=== PATIENT | female | born 1985 | race Caucasian/White ===

== ENCOUNTER 2017-01-23 14:44 | Inpatient (IN) | payer BC ==
[~2017-01-23] VITALS: Ht 157.5 cm; Wt 66.0 kg
[~2017-01-23 14:44] MED LIST: OXYC30TA PO; OXYC30TA62 PO; XANA2TAB2 PO
[2017-01-23 14:51] VITALS: BP 102/71; PULSE 87; RESP 16; TEMP 98.6; O2SAT 95
--- NOTE | 2017-01-23 16:26 | PD ---
HPI Chief Complaint: Edema Time Seen by Provider: 16:12 Travel History International Travel<30 days: No Contact w/Intl Traveler<30days: No Traveled to known affect area: No History of Present Illness HPI 31-year-old female with history of breast augmentation, here for evaluation of left breast pain, swelling, and redness. Pain started about 2-3 days ago, has been worsening, is not severe, constant, radiates down her left arm and into her back, wrist with movement and palpation. She denies fevers or chills. She takes medication for chronic pain as well as anxiety. Last week she noted some chest heaviness. No known history of cardiac disease. She denies IVDU. PFSH Past Medical History Hx Anticoagulant Therapy: No Bipolar Disorder: Yes Anxiety: Yes Cancer: No Cardiovascular Problems: No Diabetes: No Diminished Hearing: No Glaucoma: No Hepatitis: No Hiatal Hernia: No Hypertension: No Medical other: No Musculoskeletal: Yes (CHRONIC RIGHT FOOT/ANKLE PAIN) Neurologic: Yes (CYST NEXT TO PINEAL GLAND) Respiratory: No Immunizations Current: Yes Migraines: Yes Thyroid Disease: No ?: Not Past Surgical History Abdominal Surgery: Yes (LAPAROSCOPY X8) Other Surgery: Yes (BREAST AUGMENTATION) Social History Alcohol Use: Yes (RARE) Tobacco Use: Yes (/ PPD) Substance Use: No Allergies-Medications (Allergen,Severity, Reaction): Coded Allergies: Morphine (Unverified Allergy, Severe, CHEST TIGHTNESS, SOB, HIVES, 01/23/17 ) Adhesives (Verified Allergy, Mild, REDNESS, 01/23/17) Flexeril (Verified Allergy, Mild, RASH, 01/23/17) Sulfa (Verified Allergy, Mild, RASH, 01/23/17) Voltaren (Verified Adverse Reaction, Mild, NAUSEA, GI UPSET, 01/23/17) Reported Meds & Prescriptions Reported Meds & Active Scripts Active Reported Oxycodone (Oxycodone HCl) 30 Mg Tab 30 Mg PO Q8H PRN Oxycontin (Oxycodone HCl) 30 Mg Tab 30 Mg PO Q8HR Xanax (Alprazolam) 2 Mg Tab 2 Mg PO Q8H PRN Review of Systems Except as stated in HPI: all other systems reviewed are Neg Physical Exam Narrative GENERAL: Well-developed, well-nourished, comfortable, no acute distress. SKIN: Warm and dry. Left anterior forearm with several healed horizontal/ linear scars that were self-inflicted. HEAD: Atraumatic. Normocephalic. EYES: Pupils equal and round. No scleral icterus. No injection or drainage. ENT: Mucous membranes pink and moist. CARDIOVASCULAR: Regular rate and rhythm. No murmur appreciated. RESPIRATORY: No accessory muscle use. Clear to auscultation. Breath sounds equal bilaterally. BREAST: Exam performed in the presence of female nurse. Left breast with moderate edema with compared to the right with erythema laterally, diffuse tenderness, no fluctuance or induration. No nodules. Bilateral nipples are normal, no discharge. MUSCULOSKELETAL: No obvious deformities. No clubbing. No cyanosis. No edema. NEUROLOGICAL: Awake and alert. No obvious cranial nerve deficits. Motor grossly within normal limits. Normal speech. PSYCHIATRIC: Appropriate mood and affect; insight and judgment normal. Data Data Last Documented VS Vital Signs Date Time Temp Pulse Resp B/P Pulse Ox O2 Delivery O2 Flow Rate FiO2 01/23/17 17:20 14 01/23/17 17:05 94 01/23/17 14:51 98.6 87 102/71 Orders Beta Hcg (Quant/Titer) (01/23/17 16:22) Complete Blood Count With Diff (01/23/17 16:22) Comprehensive Metabolic Panel (01/23/17 16:22) Prothrombin Time / Inr (Pt) (01/23/17 16:22) Act Partial Throm Time (Ptt) (01/23/17 16:22) Iv Access Insert/Monitor (01/23/17 16:22) Ecg Monitoring (01/23/17 16:22) Oximetry (01/23/17 16:22) Sodium Chloride 0.9% Flush (Ns Flush) (01/23/17 16:30) Electrocardiogram (01/23/17 16:22) Ckmb (Isoenzyme) Profile (01/23/17 16:22) Troponin I (01/23/17 16:22) Chest, Single Ap (01/23/17 16:22) Us Breast Unilateral (01/23/17 ) Hydromorphone Pf Inj (Dilaudid Pf Inj) (01/23/17 16:30) Clindamycin Inj (Cleocin Inj) (01/23/17 16:30) Blood Culture (01/23/17 16:32) Admit Order (Ed Use Only) (01/23/17 18:45) Labs Laboratory Tests Test 01/23/17 16:30 White Blood Count 7.3 TH/MM3 Red Blood Count 4.17 MIL/MM3 Hemoglobin 13.1 GM/DL Hematocrit 38.7 % Mean Corpuscular Volume 92.9 FL Mean Corpuscular Hemoglobin 31.4 PG Mean Corpuscular Hemoglobin 33.8 % Concent Red Cell Distribution Width 12.5 % Platelet Count 220 TH/MM3 Mean Platelet Volume 7.9 FL Neutrophils (%) (Auto) 48.9 % Lymphocytes (%) (Auto) 37.8 % Monocytes (%) (Auto) 8.1 % Eosinophils (%) (Auto) 4.5 % Basophils (%) (Auto) 0.7 % Neutrophils # (Auto) 3.5 TH/MM3 Lymphocytes # (Auto) 2.8 TH/MM3 Monocytes # (Auto) 0.6 TH/MM3 Eosinophils # (Auto) 0.3 TH/MM3 Basophils # (Auto) 0.1 TH/MM3 CBC Comment DIFF FINAL Differential Comment Prothrombin Time 10.0 SEC Prothromb Time International 0.9 RATIO Ratio Activated Partial 31.7 SEC Thromboplast Time Sodium Level 141 MEQ/L Potassium Level 3.9 MEQ/L Chloride Level 106 MEQ/L Carbon Dioxide Level 25.2 MEQ/L Anion Gap 10 MEQ/L Blood Urea Nitrogen 8 MG/DL Creatinine 0.47 MG/DL Estimat Glomerular Filtration 154 ML/MIN Rate Random Glucose 87 MG/DL Calcium Level 8.1 MG/DL Total Bilirubin 0.2 MG/DL Aspartate Amino Transf 16 U/L (AST/SGOT) Alanine Aminotransferase 64 U/L (ALT/SGPT) Alkaline Phosphatase 87 U/L Total Creatine Kinase 55 U/L Troponin I LESS THAN 0.02 NG/ML Total Protein 6.8 GM/DL Albumin 3.1 GM/DL Human Chorionic Gonadotropin, LESS THAN 1 Quant MIU/ML MDM Medical Decision Making Medical Screen Exam Complete: Yes Emergency Medical Condition: Yes Interpretation(s) EKG: Sinus, rate 80, leftward axis, normal intervals, no acute ischemic abnormality. Differential Diagnosis Left breast cellulitis, left breast abscess Narrative Course Initial vital signs show heart rate 87, blood pressure 102/71, pulse ox 95% on room air, oral temp of 98.6F. CBC shows WBCs 7.3, hemoglobin 13.1, hematocrit 38.7, platelets 220 CMP is unremarkable. Cardiac enzymes are negative. Beta hCG is negative. Chest x-ray: No acute disease. Left breast ultrasound: No focal abnormality is visualized. The patient has an cellulitis to her left breast. She was given a dose of Dilaudid and is still having pain. She was given a dose of clindamycin. Patient had her breast augmentation in 2003 in [facility]. Case discussed with on-call plastic surgeon Dr. Garcia who recommends the patient be admitted to the main hospital for IV antibiotics were he can see the patient in consultation. Case discussed with hospitalist Dr. Busch who will admit the patient to his service. The patient was made aware of all findings and plan for admission. 7:30PM: The patient was evaluated at the bedside by Dr Garcia. He recommends adding vancomycin. He would like a CT thorax. Diagnosis Primary Impression: Cellulitis of left breast Admitting Information Admitting Physician Requests: Admit Claude Marcelo MD Jan 23, 2017 16:26
[2017-01-23] MEDS ORDERED: HYDROmorphone HCL PF 1 MG/ML VIAL IV PUSH ONE (16:30)
[2017-01-23] MEDS ORDERED: SODIUM CHLORIDE 0.9% FLUSH 5 ML FLUSH IVF PRN (16:30)
[2017-01-23] MEDS ORDERED: CLINDAMYCIN INJ 600 MG in SODIUM CHLORIDE 0.9% INJ 100 ML IV ONE (16:30)
[2017-01-23 16:44] LABS: AUTOMATED NEUTROPHIL # 3.5 TH/MM3 (1.8-7.7); BASOPHIL # 0.1 TH/MM3 (0-0.2); BASOPHIL % 0.7 % (0.0-2.0); EOSINOPHIL # 0.3 TH/MM3 (0-0.4); EOSINOPHIL % 4.5 % (0.0-4.0); HEMATOCRIT 38.7 % (35.0-46.0); HEMO FLAGS DIFF FINAL; LYMPH % 37.8 % (9.0-44.0); LYMPHOCYTE # 2.8 TH/MM3 (1.0-4.8); MEAN CELL VOLUME 92.9 FL (80.0-100.0); MEAN CORPUSCULAR HEMOGLOBIN 31.4 PG (27.0-34.0); MEAN CORPUSCULAR HGB CONC 33.8 % (32.0-36.0); MONO % 8.1 % (0.0-8.0); NEUT % 48.9 % (16.0-70.0); PLATELET COUNT 220 TH/MM3 (150-450); RED BLOOD COUNT 4.17 MIL/MM3 (4.00-5.30); RED CELL DISTRIBUTION WIDTH 12.5 % (11.6-17.2); WHITE BLOOD COUNT 7.3 TH/MM3 (4.0-11.0)
[2017-01-23 16:57] LABS: CHLORIDE 106 MEQ/L (98-107); POTASSIUM 3.9 MEQ/L (3.5-5.1); SODIUM (NA) 141 MEQ/L (136-145)
[2017-01-23 17:03] LABS: ANION GAP 10 MEQ/L (5-15); BICARBONATE 25.2 MEQ/L (21.0-32.0)
[2017-01-23 17:04] LABS: BLOOD UREA NITROGEN 8 MG/DL (7-18)
[2017-01-23 17:05] VITALS: O2SAT 94
[2017-01-23 17:05] LABS: APTT (PATIENT) 31.7 SEC (24.3-30.1); INTERNATIONAL NORMALIZED RATIO 0.9 RATIO
[2017-01-23 17:06] LABS: ALT (GPT) 64 U/L (10-53)
[2017-01-23 17:07] LABS: AST (GOT) 16 U/L (15-37); GLOMERULAR FILTRATION RATE 154 ML/MIN (>89)
[2017-01-23 17:08] LABS: TOTAL BILIRUBIN ADULT 0.2 MG/DL (0.2-1.0)
[2017-01-23 17:09] LABS: ALKALINE PHOSPHATASE 87 U/L (45-117)
[2017-01-23 17:10] LABS: CREATINE KINASE 55 U/L (26-192)
[2017-01-23 17:12] LABS: BETA HCG QUANT LESS THAN 1 MIU/ML (0-5)
--- NOTE | 2017-01-23 17:18 | RADHPO ---
EXAM DATE/TIME: 01/23/2017 17:07 [facility] COMPARISON: No previous studies available for comparison. INDICATIONS : Left side chest and breast pain. Swelling on left breast. MEDICAL HISTORY : None. SURGICAL HISTORY : Breast augmentation. ENCOUNTER: Initial ACUITY: 3 days PAIN SCORE: 8/10 LOCATION: Left chest FINDINGS: A single view of the chest demonstrates the lungs to be symmetrically aerated without evidence of mas s, infiltrate or effusion. The cardiomediastinal contours are unremarkable. Osseous structures are intact. CONCLUSION: No acute disease. Shaq Benitez MD on January 23, 2017 at 17:16 Board Certified Radiologist. This report was verified electronically.
--- NOTE | 2017-01-23 18:20 | RADHPO ---
EXAM DATE/TIME: 01/23/2017 17:41 [facility] COMPARISON: No previous studies available for comparison. INDICATIONS : Left breast redness and pain. MEDICAL HISTORY : Left breast redness and pain. SURGICAL HISTORY : Breast augmentation. ENCOUNTER: Initial ACUITY: 3 days PAIN SCORE: 10/10 LOCATION: Left breast. FINDINGS: A targeted left breast ultrasound study was performed in the area of redness. This demonstrates no fo nydia mass or fluid collection. The breast implant appears grossly intact. CONCLUSION: No focal abnormality visualized. Blanco Mendez MD on January 23, 2017 at 18:17 Board Certified Radiologist. This report was verified electronically.
[2017-01-23] MEDS ORDERED: SODIUM CHLORIDE 0.9% FLUSH 5 ML FLUSH FLUSH PRN (19:00)
[2017-01-23] MEDS ORDERED: NALOXONE HCL 0.4 MG/ML AMP IV PRN (19:00)
[2017-01-23] MEDS ORDERED: ACETAMINOPHEN 325 MG TAB PO PRN (19:00)
[2017-01-23] MEDS ORDERED: ONDANSETRON HCL 4 MG/2 ML VIAL IVP PRN (19:00)
[2017-01-23] MEDS ORDERED: ACETAMINOPHEN/HYDROcodone 325 MG/5 MG TAB PO PRN (19:00)
[2017-01-23] MEDS ORDERED: oxyCODONE/ACETAMINOPHEN 7.5 MG/325 MG TAB PO PRN (19:00)
[2017-01-23] MEDS ORDERED: TEMAZEPAM 15 MG CAP PO PRN (19:00)
[2017-01-23] MEDS ORDERED: MAGNESIUM HYDROXIDE SUSP 30 ML CUP PO PRN (19:00)
[2017-01-23] MEDS: SODIUM CHLOR 0.9% 1000 ML INJ 1,000 ML IV SCH (19:29)
[2017-01-23] MEDS: ALPRAZolam 1 MG TAB PO PRN (19:30)
[2017-01-23] MEDS ORDERED: VANCOMYCIN INJ 1,000 MG in SODIUM CHLOR 0.9% 250 ML INJ 250 ML IV ONE (19:45)
[2017-01-23 20:00] VITALS: BP 96/64; PULSE 90; RESP 16; TEMP 98.1; O2SAT 94
[2017-01-23] MEDS ORDERED: IOHEXOL 350 MG/ML 10 ML VIAL (for RAD DIAG) IV ONE (20:48)
--- NOTE | 2017-01-23 20:53 | RADHPO ---
EXAM DATE/TIME: 01/23/2017 20:28 [facility] COMPARISON: No previous studies available for comparison. INDICATIONS : Left chest pain radiating into upper back. Swelling. Redness. Evaluate for cellulitis. IV CONTRAST: 75 cc Omnipaque 350 (iohexol) IV RADIATION DOSE: 6.98 CTDIvol (mGy) MEDICAL HISTORY : None SURGICAL HISTORY : Breast augmentation. ENCOUNTER: Initial ACUITY: 2 days PAIN SCALE: 10/10 LOCATION: Left chest TECHNIQUE: Volumetric scanning of the chest was performed. Using automated exposure control and adjustment of t he mA and/or kV according to patient size, radiation dose was kept as low as reasonably achievable to obtain optimal diagnostic quality images. FINDINGS: LUNGS: There is bibasilar atelectasis versus scarring. Otherwise, the lungs are grossly clear. No acute infi ltrates are seen. No evidence of pulmonary edema. PLEURA: There is no pleural thickening or pleural effusion. MEDIASTINUM: The heart and great vessels demonstrate no acute abnormality. There is no mediastinal or hilar lymph adenopathy. AXILLAE: A few nonspecific lymph nodes are seen in the left axillary area. Right axillary is unremarkable. SKELETAL: Within normal limits for patient age. MISCELLANEOUS: Bilateral breast augmentation device is in place. There is nonspecific edema in the subcutaneous soft tissues along the left-sided chest and breast area. No loculated fluid collections. CONCLUSION: 1. Platelike scarring versus atelectasis in both lung bases. 2. Nonspecific edema in the subcutaneous soft tissues along the left anterior chest/breast area. 3. Nonspecific lymph nodes in the left axillary area. Nahum Doyle MD on January 23, 2017 at 20:48 Board Certified Radiologist. This report was verified electronically.
[2017-01-23 22:53] VITALS: BP 99/59; PULSE 68; RESP 18; TEMP 98.8; O2SAT 98
[2017-01-23] MEDS: SODIUM CHLORIDE 0.9% FLUSH 5 ML FLUSH FLUSH SCH (23:02)
[2017-01-23] MEDS: LACTOBACILLUS ACIDOPHILUS TAB PO SCH (23:02)
[2017-01-23] MEDS: oxyCODONE HCL 10 MG CONTROLLED RELEASE TAB PO SCH (23:03)
[2017-01-23] MEDS: CLINDAMYCIN INJ 300 MG in SODIUM CHLORIDE 0.9% INJ 100 ML IV SCH (23:45)
[2017-01-24] VITALS (7 sets, daily range): BP systolic 92–117; BP diastolic 54–72; PULSE 63–86; RESP 14–21; TEMP 97.9–98.8; O2SAT 95–98
[2017-01-24] MEDS: HYDROmorphone HCL PF 1 MG/ML VIAL IV PRN ×4 (01:03→21:15)
[2017-01-24] MEDS: CLINDAMYCIN INJ 300 MG in SODIUM CHLORIDE 0.9% INJ 100 ML IV SCH (05:32)
[2017-01-24] MEDS: oxyCODONE HCL 10 MG CONTROLLED RELEASE TAB PO SCH (05:32)
[2017-01-24 07:05] LABS: AUTOMATED NEUTROPHIL # 2.5 TH/MM3 (1.8-7.7); BASOPHIL % 0.3 % (0.0-2.0); EOSINOPHIL # 0.3 TH/MM3 (0-0.4); HEMATOCRIT 35.1 % (35.0-46.0); HEMO FLAGS DIFF FINAL; LYMPH % 46.4 % (9.0-44.0); LYMPHOCYTE # 2.9 TH/MM3 (1.0-4.8); MEAN CELL VOLUME 93.7 FL (80.0-100.0); MEAN CORPUSCULAR HEMOGLOBIN 32.1 PG (27.0-34.0); MEAN CORPUSCULAR HGB CONC 34.2 % (32.0-36.0); MONO % 9.2 % (0.0-8.0); NEUT % 39.1 % (16.0-70.0); PLATELET COUNT 212 TH/MM3 (150-450); RED BLOOD COUNT 3.75 MIL/MM3 (4.00-5.30); RED CELL DISTRIBUTION WIDTH 13.2 % (11.6-17.2); WHITE BLOOD COUNT 6.4 TH/MM3 (4.0-11.0)
[2017-01-24 07:37] LABS: POTASSIUM 4.4 MEQ/L (3.5-5.1)
[2017-01-24] MEDS: LACTOBACILLUS ACIDOPHILUS TAB PO SCH ×2 (07:43→21:14)
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
[2017-01-24] MEDS: SODIUM CHLORIDE 0.9% FLUSH 5 ML FLUSH FLUSH SCH ×2 (09:00→21:00)
[2017-01-24] MEDS: ceFAZolin 1,000 MG/NS 100 ML IV SCH ×6 (09:39→21:14)
[2017-01-24 09:56] LABS: AMPHETAMINE, URINE NEG (NEG); BARBITURATES, URINE NEG (NEG); COCAINE, URINE NEG (NEG)
--- NOTE | 2017-01-24 10:08 | MB ---
cc: HEMALZAHRAAMIGUEL McelroyY DATE OF CONSULTATION 01/23/2017 REASON FOR CONSULTATION Left breast swelling, pain and inflammation. The patient has bilateral breast implants. HISTORY OF PRESENT ILLNESS This is a 31-year-old white female brought to the [facility] emergency room today. she has a history of having saline breast implant placed last in [place] by Dr. Beau Miller in 2003. The size and the shape / profile of the implant may be at the patient's home, but it is not available right now. The implants are subpectoral. They were inserted through inframammary approach. The patient has had no postoperative immediate issues. She has done well over the last 8-9 years. The patient started noticing some fullness of both breasts going back around /Sunday past week when she was menstruating. She thought that the breasts were engorged because of that. The breast, however, started getting more red and swollen and remained painful over the weekend. She did not have any fevers, chills, or any systemic issues over the weekend. She did not work over the weekend and does not particularly recall being tired. The patient denies having any source of infection, any skin scratches trauma, insect bites. No problem with teeth, No urinary tract infection. No sinus issues. No sore throat or any other cause that can be traced as a source of her left breast problem. The patient did not have this type of issue before. The breast became progressively larger and painful and tight over the last several hours even while she has been in the emergency room. The patient has been evaluated by the ER physician including two ultrasounds, one was done by the ER physician himself and he noticed a layer of fluid outside the implant inside the capsule. This sonogram was not recorded as it is a portable machine. The patient was then sent to the radiology department to have a recorded ultrasound. The report received indicated no clear fluid around the implant on the left side. The patient has been started on IV antibiotics. She is being admitted to the medical service. A plastic surgery consultation was called in to me. I have advised the ER physician to have the patient transferred to [facility] in case of any immediate future surgical need. PAST MEDICAL HISTORY Otherwise negative for any major medical problems. There is some history of bipolar disorder. MEDICATIONS He has had no major medications. ALLERGIES No significant allergies noted. SOCIAL HISTORY The patient does not smoke or have any alcohol or drug abuse. No other risk factors. PHYSICAL EXAMINATION GENERAL: A 31-year-old white female with stable vital signs. The patient is alert, cooperative, fully oriented. She is resting in the emergency room bed but able to move at will. General examination is grossly within normal range. She is not on the monitor. She is afebrile. Local examination of the breast shows bilaterally augmented breast. There is a fairly wide space between the two medial ends when she is laying down. The right side breast volume is approximately 300 mL to 350 mL range by visualization and the implant seems to be crossing the anterior axillary line to the side of the chest slightly. The left breast on the other hand is about 450-500 mL volume. It is tight placed more anteriorly on the chest wall. It still extends outside the anterior axillary fold level. The inframammary fold level tends to be well-maintained on both sides. The upper pole of the left breast fullness extends to just below clavicle line. There is approximately 2 inches of open clear space between the medial folds and the upper pole of the right breast. The breast on the right side feels soft. The implant is palpable. On the left side it is hard to feel the implant and the tissue thickness is increased with edema. There is mild redness involving the lower half of the breast in particular. No nipple discharge noted. No lymphatic streaking noted on the axillary line. No lymphangitis noted on the inside of the left arm either. The rest of the chest and abdomen appears to be clear. The local temperature on the left side is slightly warm compared to the right, however, the patient has had been keeping the chest covered under the blanket fairly well. RECOMMENDATION The ultrasound was reviewed by myself once discussing with the ER physician. There may be some shadowing outside the implant capsule. However, since the ultrasound window is small and does not provide a full picture, CAT scan is recommended to look at the entire left breast in one film including the opposite site for comparison. The patient is already on IV clindamycin. I recommended adding a second antibiotic, preferably vancomycin, at this time to potentially cover for any community or other MRSA organism empirically. The laboratory tests have shown WBC within normal range. The patient was explained the current situation. If the cellulitis and inflammation is limited to the breast tissue outside of the implant capsule, it may be possible to control it with IV antibiotics alone without any surgery. If there is obvious fluid collection around the implant that may change the approach to possibly watching it for a short period for any clinical improvement. If there is no improvement or worsening of the clinical status, an exploration of the implant pocket would be in order, particularly to prevent any rapid deterioration or septic shock type of issues. The patient understands that there is a significant risk of having to remove the current implant in case if the cavity explored the chances of losing the prosthesis are high and the breast augmentation may have to be leg go on that side until all the healing is complete and then a future reimplantation can be considered. There may be a small chance of trying to salvage the current augmentation depending on the internal examination inside the implant pocket. There may be possibility of washing the pocket out and placing an identical new implant if the current implant info can be retrieved again a possibility that in the near future this attempt may or may not succeed. The patient is going to call about that at home to obtain the implant information if possible. If that is not available, a phone call may be made to her plastic surgeon's office tomorrow when they open. The patient will be kept n.p.o. after her dinner tonight and I will see her back tomorrow for reevaluation and further care. signed, not fully reviewed Morena Garcia MD ADDITIONAL INFORMATION GIVEN BY PATIENT APPROX THIRD DAY POST ADMISSION - SHE HAD A RECENT TATTOO DONE ON THE LEFT DORSAL HAND - APPROX 1 WEEK BEFORE THE ONSET OF THE LEFT BREAST CELLULITIS. SHE IS IMPROVING SIGNIFICANTLY AT THIS TIME. DAJUAN/ /10:04 PM /10:02 AM RONNA
--- NOTE | 2017-01-24 11:31 | PD.PLAS.PN ---
Subjective Remarks Patient seen approx 0815 am Feels the same, afebrile no other changes - no nausea,no headache etc. Left breast seems a little smaller and more mobile to the side lying down. There is an approximately 1 1/2 inch wide band of mild redness and edema extending from the 9 o'clock position medially to 3 o'clock position laterally - passing just under the areola There is a clean normal skin band between the above area and the infra mammary fold. Upper half of the breast is relatively normal looking skin Breast feels softer than before. Not much warmer than the right side. I spoke to Dr. Odell in radiology - the CT report yesterday did not show any "loculated fluid", however, I went through the CT images and discussed the findings with Dr. Odell - there is fluid surrounding the left breast implant and he offered to drain a sample using ultrasound guided aspiration. He feels fairly confident about being able to do this while safe guarding the implant itself. ALso the implant stickers were retrieved by patient from her home - they are [phone] [place]han implants. Will try to get a back up overnighted. To keep her NPO still while getting the fluid samples. Also, I spoke to the pathologist and Dr. Odell a few minutes ago - will try to send some fluid for flow cytometry to look for ALCL - although it is very unlikely to be positive - usually it needs a capsule tissue sample to diagnose. Will continue current management. Vital Signs Date Time Temp Pulse Resp B/P Pulse Ox O2 Delivery O2 Flow Rate FiO2 01/24/17 08:04 98.4 65 18 92/60 96 01/24/17 04:52 98.7 78 21 103/57 98 01/24/17 01:08 97.9 86 18 117/55 98 01/23/17 22:53 98.8 68 18 99/59 98 01/23/17 20:00 98.1 90 16 96/64 94 Room Air 01/23/17 17:20 14 01/23/17 17:05 94 01/23/17 14:51 98.6 87 16 102/71 95 I/O 01/23/17 01/23/17 01/23/17 01/24/17 01/24/17 01/24/17 07:00 15:00 23:00 07:00 15:00 23:00 Intake Total 250 ml Balance 250 ml Intake IV Total 250 ml Laboratory Tests Test 01/23/17 01/24/17 01/24/17 16:30 06:09 09:25 White Blood Count 7.3 6.4 Red Blood Count 4.17 3.75 Hemoglobin 13.1 12.0 Hematocrit 38.7 35.1 Mean Corpuscular Volume 92.9 93.7 Mean Corpuscular Hemoglobin 31.4 32.1 Mean Corpuscular Hemoglobin 33.8 34.2 Concent Red Cell Distribution Width 12.5 13.2 Platelet Count 220 212 Mean Platelet Volume 7.9 7.6 Neutrophils (%) (Auto) 48.9 39.1 Lymphocytes (%) (Auto) 37.8 46.4 Monocytes (%) (Auto) 8.1 9.2 Eosinophils (%) (Auto) 4.5 5.0 Basophils (%) (Auto) 0.7 0.3 Neutrophils # (Auto) 3.5 2.5 Lymphocytes # (Auto) 2.8 2.9 Monocytes # (Auto) 0.6 0.6 Eosinophils # (Auto) 0.3 0.3 Basophils # (Auto) 0.1 0.0 CBC Comment DIFF FINAL DIFF FINAL Differential Comment Prothrombin Time 10.0 Prothromb Time International 0.9 Ratio Activated Partial 31.7 Thromboplast Time Sodium Level 141 142 Potassium Level 3.9 4.4 Chloride Level 106 110 Carbon Dioxide Level 25.2 25.0 Anion Gap 10 7 Blood Urea Nitrogen 8 6 Creatinine 0.47 0.47 Estimat Glomerular Filtration 154 154 Rate Random Glucose 87 81 Calcium Level 8.1 7.9 Total Bilirubin 0.2 Aspartate Amino Transf 16 (AST/SGOT) Alanine Aminotransferase 64 (ALT/SGPT) Alkaline Phosphatase 87 Total Creatine Kinase 55 Troponin I LESS THAN 0.02 Total Protein 6.8 Albumin 3.1 Human Chorionic Gonadotropin, LESS THAN 1 Quant Urine Opiates Screen POS Urine Barbiturates Screen NEG Urine Amphetamines Screen NEG Urine Benzodiazepines Screen POS Urine Cocaine Screen NEG Urine Cannabinoids Screen NEG Date/Time Procedure Status Source Growth 01/23/17 17:03 Aerobic Blood Culture - Preliminary Resulted Blood Peripheral NO GROWTH IN 1 DAY 01/23/17 17:03 Anaerobic Blood Culture - Preliminary Resulted Blood Peripheral NO GROWTH IN 1 DAY Result Diagram: 01/24/17 0609 01/24/17 0609 Chapin Garcia MD Jan 24, 2017 11:31
[2017-01-24] MEDS: SODIUM CHLOR 0.9% 1000 ML INJ 1,000 ML IV SCH ×3 (12:35→23:49)
[2017-01-24] MEDS: ALPRAZolam 1 MG TAB PO PRN ×2 (15:18→23:49)
--- NOTE | 2017-01-24 15:22 | RADRPT ---
EXAM DATE/TIME: 01/24/2017 13:11 [place] COMPARISON: No previous studies available for comparison. INDICATIONS : Left breast swelling and pain. Fluid collection seen on Cat Scan Thorax. MEDICAL HISTORY : Migraines. Bipolar. SURGICAL HISTORY : Laparoscopy. Left shoulder tear repair. Right knee surgery. Breast augmentation. ENCOUNTER: Initial ACUITY: 1 day PAIN SCORE: 9/10 LOCATION: Left breast. FLUID: Total volume of 9 cc of clear, yellow fluid was removed. Fluid was sent to lab for ordered studies. Post procedure scanning reveals no hematoma or other complication. TECHNIQUE: 1. Ultrasound guidance for needle aspiration. 2. Aspiration. The risks, benefits, and alternatives to ultrasound guided aspiration were explained to the patient i n detail including the risk of bleeding and infection. Written and verbal informed consent was obtai delvin. Under ultrasound guidance 822 gauge needle was carefully placed into the fluid collection around the left breast implant. 10 cc was aspirated out and sent for studies. The fluid did not look infected. CONCLUSION: Uncomplicated ultrasound guided aspiration. Ambrocio Odell MD FACR on January 24, 2017 at 15:17 Board Certified Radiologist. This report was verified electronically.
--- NOTE | 2017-01-24 20:12 | EKG ---
Date Performed: 01/23/2017 Time Performed: 16:36:52 PTAGE: 31 years EKG: Sinus rhythm Leftward axis Borderline ECG PREVIOUS TRACING : 09/23/2010 20.24 Compared to prior tracing no significant change DOCTOR: Slim Felix Interpretating Date/Time 01/24/2017 20:11:21
[2017-01-25 00:27] VITALS: BP 87/58; PULSE 68; RESP 18; TEMP 98.8; O2SAT 98
[2017-01-25] MEDS: HYDROmorphone HCL PF 1 MG/ML VIAL IV PRN ×3 (02:03→15:16)
[2017-01-25] MEDS: ceFAZolin 1,000 MG/NS 100 ML IV SCH ×8 (03:23→21:30)
[2017-01-25 04:12] VITALS: BP 89/54; PULSE 68; RESP 18; TEMP 97.8; O2SAT 98
[2017-01-25 08:12] VITALS: BP 126/82; PULSE 78; RESP 18; O2SAT 99
[2017-01-25] MEDS: SODIUM CHLORIDE 0.9% FLUSH 5 ML FLUSH FLUSH SCH ×2 (09:00→21:00)
[2017-01-25] MEDS: LACTOBACILLUS ACIDOPHILUS TAB PO SCH ×2 (09:02→21:30)
[2017-01-25] MEDS: ALPRAZolam 1 MG TAB PO PRN ×2 (09:03→17:57)
[2017-01-25 11:20] VITALS: BP 92/65; PULSE 69; RESP 16; TEMP 97.9; O2SAT 98
[2017-01-25] MEDS: SODIUM CHLOR 0.9% 1000 ML INJ 1,000 ML IV SCH ×2 (12:36→21:31)
--- NOTE | 2017-01-25 15:52 | PD.PLAS.PN ---
Subjective Remarks Patient doing well. No fever no chills Left breast pain "still the same" On Dilaudid Left breast looks smaller, less edema, still has the lower pole mild red band - but not as red as yesterday. Breast feels softer and is beginning to lay more to the side now. Gram stain - few Gm+ve cocci in pairs Culture not growing any thing yet On IV Ancef. Discussed waiting for the cultures to go past 72 hours - stay on IV antibiotics in the mean time. No immediate plan for surgery but may still be needed. Vital Signs Date Time Temp Pulse Resp B/P Pulse Ox O2 Delivery O2 Flow Rate FiO2 01/25/17 12:34 18 01/25/17 11:20 97.9 69 16 92/65 98 01/25/17 08:12 78 18 126/82 99 01/25/17 04:12 97.8 68 18 89/54 98 01/25/17 00:27 98.8 68 18 87/58 98 01/24/17 20:20 98.8 68 18 99/56 98 I/O 01/24/17 01/24/17 01/24/17 01/25/17 01/25/17 01/25/17 07:00 15:00 23:00 07:00 15:00 23:00 Intake Total 1628 ml 500 ml Balance 1628 ml 500 ml Intake IV Total 1628 ml 500 ml Date/Time Procedure Status Source Growth 01/24/17 14:15 Gram Stain - Final Resulted Fluid Other 01/24/17 14:15 Body Fluid Culture - Preliminary Resulted Fluid Other NO GROWTH IN 24 HOURS. 01/24/17 14:15 Fungal Smear - Final Resulted Fluid Other NO FUNGAL ELEMENTS SEEN. 01/24/17 14:15 Fungal Culture Resulted Fluid Other Pending 01/23/17 17:03 Aerobic Blood Culture - Preliminary Resulted Blood Peripheral NO GROWTH IN 2 DAYS 01/23/17 17:03 Anaerobic Blood Culture - Preliminary Resulted Blood Peripheral NO GROWTH IN 2 DAYS Result Diagram: 01/24/17 0609 01/24/17 0609 Chapin Garcia MD Jan 25, 2017 15:52
--- NOTE | 2017-01-25 15:54 | HHI.PR ---
Subjective Remarks redness and swelling with much improvement pain also improved/less tender to touch no fever or chills Objective Vitals Vital Signs Date Time Temp Pulse Resp B/P Pulse Ox O2 Delivery O2 Flow Rate FiO2 01/25/17 12:34 18 01/25/17 11:20 97.9 69 16 92/65 98 01/25/17 08:12 78 18 126/82 99 01/25/17 04:12 97.8 68 18 89/54 98 01/25/17 00:27 98.8 68 18 87/58 98 01/24/17 20:20 98.8 68 18 99/56 98 I/O 01/24/17 01/24/17 01/24/17 01/25/17 01/25/17 01/25/17 07:00 15:00 23:00 07:00 15:00 23:00 Intake Total 1628 ml 500 ml Balance 1628 ml 500 ml Intake IV Total 1628 ml 500 ml Result Diagram: 01/24/17 0609 01/24/17 0609 Imaging Last 72 hours Impressions Needle Aspiration Ultrasound 01/24/17 0000 Signed Impressions: Service Date/Time: Tuesday, January 24, 2017 13:11 - CONCLUSION: Uncomplicated ultrasound guided aspiration. Ambrocio Odell MD FACR Chest X-Ray 01/23/17 1622 Signed Impressions: Service Date/Time: Monday, January 23, 2017 17:07 - CONCLUSION: No acute disease. Shaq Benitez MD Chest CT 01/23/17 0000 Signed Impressions: Service Date/Time: Monday, January 23, 2017 20:28 - CONCLUSION: 1. Platelike scarring versus atelectasis in both lung bases. 2. Nonspecific edema in the subcutaneous soft tissues along the left anterior chest/breast area. 3. Nonspecific lymph nodes in the left axillary area. Nahum Doyle MD Breast Ultrasound 01/23/17 0000 Signed Impressions: Service Date/Time: Monday, January 23, 2017 17:41 - CONCLUSION: No focal abnormality visualized. Blanco Mendez MD Objective Remarks awake and alert NAD lungs clear left breast swelling decreased, erythema almost resolved, + mild tenderness to touch, no nipple discharge left axilla- no lymphadenopathy extremities no edema A/P Assessment and Plan 31-year-old female presenting with #1 left breast abscess/cellulitis S/P US guided I and D 01/24- 10 cc fluid obtained ff fluid studies- pending continue Ancef [address] Garcia ff closely along with us- depending on clinical progress- may still need surgery #2 history of chronic pain on pain management limit IV dilaudid to 0.2 mg IV prn for pain 8-10 patient prefers to be on with home pain regimen Oxycontin 30 mg SR q 8 scheduled and 30 mg IR q 6 prn for breakthrough pain #3 history of anxiety disorder Xanax 2 mg by mouth every 8 when necessary patient up and ambulating Oliva Prado MD Jan 25, 2017 15:54
[2017-01-25 17:00] VITALS: BP 99/70; PULSE 58; RESP 16; TEMP 97.7; O2SAT 100
[2017-01-25] MEDS ORDERED: HYDROmorphone HCL PF 1 MG/ML VIAL IV PUSH PRN (17:00)
[2017-01-25 20:00] VITALS: BP 114/74; PULSE 74; RESP 18; TEMP 96.4; O2SAT 98
[2017-01-25] MEDS: oxyCODONE HCL 10 MG CONTROLLED RELEASE TAB PO SCH (21:30)
[2017-01-26 00:45] VITALS: BP 91/56; PULSE 73; RESP 18; TEMP 97.8; O2SAT 97
[2017-01-26] MEDS: ALPRAZolam 1 MG TAB PO PRN ×3 (01:58→18:21)
[2017-01-26] MEDS: ceFAZolin 1,000 MG/NS 100 ML IV SCH ×8 (03:14→21:38)
[2017-01-26] MEDS: SODIUM CHLOR 0.9% 1000 ML INJ 1,000 ML IV SCH ×2 (03:15→14:28)
[2017-01-26 04:00] VITALS: BP 91/60; PULSE 61; RESP 16; TEMP 98.5; O2SAT 97
[2017-01-26] MEDS: oxyCODONE HCL 10 MG CONTROLLED RELEASE TAB PO SCH ×3 (06:02→21:37)
[2017-01-26] MEDS: LACTOBACILLUS ACIDOPHILUS TAB PO SCH ×2 (07:31→21:37)
[2017-01-26] MEDS: SODIUM CHLORIDE 0.9% FLUSH 5 ML FLUSH FLUSH SCH ×2 (07:32→21:00)
[2017-01-26 08:00] VITALS: BP 102/78; PULSE 62; RESP 18; TEMP 97.2; O2SAT 99
--- NOTE | 2017-01-26 08:16 | HHI.PR ---
Subjective Remarks Patient seen in the room in the presence of Nurse Miss Jett also her Mother and her significant other her Brother present Improved her Erythema of the breast, due to persistent breast pain , recommended by Doctor Chapin Garcia to continue IV antibiotics, will ask for the expertise of Infectious Disease specialist to guide the type and duration of antibiotics. blood cultures negative. Objective Vital Signs Date Time Temp Pulse Resp B/P Pulse Ox O2 Delivery O2 Flow Rate FiO2 01/26/17 04:00 98.5 61 16 91/60 97 01/26/17 00:45 97.8 73 18 91/56 97 01/25/17 20:00 96.4 74 18 114/74 98 01/25/17 17:00 97.7 58 16 99/70 100 01/25/17 12:34 18 01/25/17 11:20 97.9 69 16 92/65 98 I/O 01/25/17 01/25/17 01/25/17 01/26/17 01/26/17 01/26/17 07:00 15:00 23:00 07:00 15:00 23:00 Intake Total 888 ml 1624 ml Balance 888 ml 1624 ml Intake Oral 400 ml IV Total 888 ml 1224 ml # Voids 2 # Bowel Movements 0 Result Diagram: 01/24/17 0609 01/24/17 0609 Imaging Last Impressions Needle Aspiration Ultrasound 01/24/17 0000 Signed Impressions: Service Date/Time: Tuesday, January 24, 2017 13:11 - CONCLUSION: Uncomplicated ultrasound guided aspiration. Ambrocio Odell MD FACR Chest X-Ray 01/23/17 1622 Signed Impressions: Service Date/Time: Monday, January 23, 2017 17:07 - CONCLUSION: No acute disease. Shaq Benitez MD Chest CT 01/23/17 0000 Signed Impressions: Service Date/Time: Monday, January 23, 2017 20:28 - CONCLUSION: 1. Platelike scarring versus atelectasis in both lung bases. 2. Nonspecific edema in the subcutaneous soft tissues along the left anterior chest/breast area. 3. Nonspecific lymph nodes in the left axillary area. Nahum Doyle MD Breast Ultrasound 01/23/17 0000 Signed Impressions: Service Date/Time: Monday, January 23, 2017 17:41 - CONCLUSION: No focal abnormality visualized. Blanco Mendez MD Procedures left breast biopsy Other Results Laboratory Tests Test 01/23/17 01/24/17 01/24/17 01/24/17 16:30 06:09 09:25 14:15 Prothrombin Time 10.0 SEC Prothromb Time International 0.9 RATIO Ratio Activated Partial 31.7 SEC Thromboplast Time Total Bilirubin 0.2 MG/DL Aspartate Amino Transf 16 U/L (AST/SGOT) Alanine Aminotransferase 64 U/L (ALT/SGPT) Alkaline Phosphatase 87 U/L Total Creatine Kinase 55 U/L Troponin I LESS THAN 0.02 NG/ML Total Protein 6.8 GM/DL Albumin 3.1 GM/DL Human Chorionic Gonadotropin, LESS THAN 1 Quant MIU/ML White Blood Count 6.4 TH/MM3 Red Blood Count 3.75 MIL/MM3 Hemoglobin 12.0 GM/DL Hematocrit 35.1 % Mean Corpuscular Volume 93.7 FL Mean Corpuscular Hemoglobin 32.1 PG Mean Corpuscular Hemoglobin 34.2 % Concent Red Cell Distribution Width 13.2 % Platelet Count 212 TH/MM3 Mean Platelet Volume 7.6 FL Neutrophils (%) (Auto) 39.1 % Lymphocytes (%) (Auto) 46.4 % Monocytes (%) (Auto) 9.2 % Eosinophils (%) (Auto) 5.0 % Basophils (%) (Auto) 0.3 % Neutrophils # (Auto) 2.5 TH/MM3 Lymphocytes # (Auto) 2.9 TH/MM3 Monocytes # (Auto) 0.6 TH/MM3 Eosinophils # (Auto) 0.3 TH/MM3 Basophils # (Auto) 0.0 TH/MM3 CBC Comment DIFF FINAL Differential Comment Sodium Level 142 MEQ/L Potassium Level 4.4 MEQ/L Chloride Level 110 MEQ/L Carbon Dioxide Level 25.0 MEQ/L Anion Gap 7 MEQ/L Blood Urea Nitrogen 6 MG/DL Creatinine 0.47 MG/DL Estimat Glomerular Filtration 154 ML/MIN Rate Random Glucose 81 MG/DL Calcium Level 7.9 MG/DL Urine Opiates Screen POS Urine Barbiturates Screen NEG Urine Amphetamines Screen NEG Urine Benzodiazepines Screen POS Urine Cocaine Screen NEG Urine Cannabinoids Screen NEG Miscellaneous Test Result Objective Remarks GENERAL: No Acute distress SKIN: Warm and dry. HEAD: Atraumatic. Normocephalic. EYES: Pupils equal and round. No scleral icterus. No injection or drainage. ENT: No nasal bleeding or discharge. Mucous membranes pink and moist. NECK: Trachea midline. No JVD. CARDIOVASCULAR: Regular rate and rhythm. RESPIRATORY: No accessory muscle use. Clear to auscultation. Breath sounds equal bilaterally. GASTROINTESTINAL: Abdomen soft, non-tender, nondistended. Hepatic and splenic margins not palpable. MUSCULOSKELETAL: Extremities without clubbing, cyanosis, or edema. No obvious deformities. NEUROLOGICAL: Awake and alert. No obvious cranial nerve deficits. Motor grossly within normal limits. Five out of 5 muscle strength in the arms and legs. Normal speech. PSYCHIATRIC: Appropriate mood and affect; insight and judgment normal. Medications and IVs Current Medications Medications (Trade) Dose Ordered Sig/Julian Route Start Time Stop Time Status Last Admin (NS 1000 ml Inj) 1,000 ml @ 100 mls/hr Q10H IV 01/23/17 18:51 01/25/17 21:31 (NS Flush) 2 ml UNSCH PRN FLUSH 01/23/17 19:00 01/24/17 16:51 (NS Flush) 2 ml BID FLUSH 01/23/17 21:00 01/26/17 07:32 (Tylenol) 650 mg Q4H PRN PO 01/23/17 19:00 (Zofran Inj) 4 mg Q6H PRN IVP 01/23/17 19:00 (Milk Of Magnesia Liq) 30 ml Q12H PRN PO 01/23/17 19:00 (Restoril) 15 mg HS PRN PO 01/23/17 19:00 (Narcan Inj) 0.4 mg UNSCH PRN IV 01/23/17 19:00 (Lactinex) 1 tab Q12HR PO 01/23/17 21:00 01/26/17 07:31 Alprazolam 2 mg 2 mg Q8H PRN PO 01/23/17 19:00 01/26/17 01:58 (Ancef Inj/NS Inj) 100 ml @ 200 mls/hr Q6H IV 01/24/17 09:00 01/26/17 07:32 (Roxicodone) 30 mg Q6HR PRN PO 01/25/17 18:00 01/26/17 07:31 (OxyCONTIN CR) 30 mg Q8HR PO 01/25/17 22:00 01/26/17 06:02 (Dilaudid Pf Inj) 0.2 mg Q4H PRN IV PUSH 01/25/17 17:00 A/P Assessment and Plan 31-year-old female presenting with #1 left breast abscess/cellulitis S/P US guided I and D 01/24- 10 cc fluid obtained Negative Pathology report. Seen first with Nurse then with Doctor Chapin Garcia continue Ancef 1 g every 6. ID specialist consult placed. #2 history of chronic pain on pain management continue oxycodone by mouth. #3 history of anxiety disorder Xanax 2 mg by mouth every 8 when necessary patient up and ambulating Code Status Full Code awaiting recommendations by ID specialist. Discharge Planning Expected by tomorrow. Tariq Wheeler MD Jan 26, 2017 08:16
[2017-01-26 12:00] VITALS: BP 106/75; PULSE 67; RESP 18; TEMP 97.4; O2SAT 98
--- NOTE | 2017-01-26 13:53 | PD.PLAS.PN ---
Subjective Remarks Patient stable, afebrile C/O increased pain inside the breast and left axilla and some pain going to the right side as well. Left breast is smaller and much less red now, nearly clear skin on the lower pole Edema reduced as well Patient now says that she had a new tattoo put on the left hand one week before the breast pain. She did not notice any red streaks on the skin between the tattoo and the left axilla. Cultures are still negative. ALCL flow cytometry is also negative for any malignant cells. No CBC done today. Rec: Continue medical treatment at present. Removal of implant possible still , but the current clinical picture suggests breast tissue inflammation rather than periprosthetic infection. Will follow. Vital Signs Date Time Temp Pulse Resp B/P Pulse Ox O2 Delivery O2 Flow Rate FiO2 01/26/17 12:00 97.4 67 18 106/75 98 01/26/17 08:00 97.2 62 18 102/78 99 01/26/17 04:00 98.5 61 16 91/60 97 01/26/17 00:45 97.8 73 18 91/56 97 01/25/17 20:00 96.4 74 18 114/74 98 01/25/17 17:00 97.7 58 16 99/70 100 I/O 01/25/17 01/25/17 01/25/17 01/26/17 01/26/17 01/26/17 07:00 15:00 23:00 07:00 15:00 23:00 Intake Total 888 ml 1624 ml Balance 888 ml 1624 ml Intake Oral 400 ml IV Total 888 ml 1224 ml # Voids 2 # Bowel Movements 0 Date/Time Procedure Status Source Growth 01/24/17 14:15 Gram Stain - Final Resulted Fluid Other 01/24/17 14:15 Body Fluid Culture - Preliminary Resulted Fluid Other NO GROWTH IN 48 HOURS. 01/24/17 14:15 Fungal Smear - Final Resulted Fluid Other NO FUNGAL ELEMENTS SEEN. 01/24/17 14:15 Fungal Culture Resulted Fluid Other Pending 01/23/17 17:03 Aerobic Blood Culture - Preliminary Resulted Blood Peripheral NO GROWTH IN 3 DAYS 01/23/17 17:03 Anaerobic Blood Culture - Preliminary Resulted Blood Peripheral NO GROWTH IN 3 DAYS Result Diagram: 01/24/17 0609 01/24/17 0609 Chapin Garcia MD Jan 26, 2017 13:53
[2017-01-26 16:00] VITALS: BP 143/95; PULSE 57; RESP 18; TEMP 97.9; O2SAT 99
--- NOTE | 2017-01-26 19:07 | MB ---
cc: BINH KOVACS MD DATE OF CONSULTATION 01/26/[address] Braga REASON FOR CONSULTATION Left breast cellulitis. HISTORY OF PRESENT ILLNESS This is a 32-year-old white female who presented to [facility] emergency department on 01/23 with edema and redness of the left breast along with left breast pain. The patient noted this approximately three days prior to presenting to the emergency department. She was also noting radiation of pain down her left arm and into her back and wrist. She has a history of left breast saline implant in 2007. The patient was admitted to the hospital on 01/23 and she was started on IV antibiotics. She underwent a breast ultrasound on 01/23 and it showed no focal abnormality. There was no focal mass or fluid collection. The patient was also evaluated by plastic surgery. CT scan of the chest was obtained and did not show any loculated fluid. A sample of fluid around the implant was taken and sent to pathology. A culture was also taken of that sample and there was no growth from the fluid. The gram stain showed few white blood cells and no organisms. A prior report on the gram stain had revealed rare gram-positive cocci in pairs but that report was changed. Blood culture on admission has no growth. There was no fungal elements on the culture as well. The patient states that she still has pain in the breast area. There is no visible cellulitis. She thinks the cellulitis has improved and also the nurse caregiver also thinks the cellulitis has improved. I see no visible erythema at the breast. She states that the pain is approximately an 8/10 scale however. She reports pain all over the left breast. PAST MEDICAL HISTORY 1. Chronic pain. The patient has been followed by a pain specialist. 2. Anxiety disorder. 3. Left shoulder surgery in 2007, 4. Breast augmentation surgery 2007. 5. Ankle injury associated RSV ALLERGIES VOLTAREN SULFA FLEXERIL MORPHINE ADHESIVE. MEDICATIONS 1. Cephazolin 2. OxyContin 3. Dilaudid p.r.n. 4. Lactinex 5. Tylenol p.r.n., 6. Xanax. SOCIAL HISTORY And positive for tobacco approximately [place] pack cigarettes a day. Positive alcohol use. No illicit drugs. FAMILY HISTORY Noncontributory. REVIEW OF SYSTEMS GENERAL: Significant for occasional sweats. Denies fever or chills. HEENT: Denied blurred vision, double vision, nasal discharge, soreness of the throat, difficulty swallowing. NECK: Denies pain or swelling. RESPIRATORY: Denies cough or shortness of breath. CARDIOVASCULAR: Denies palpitation or chest pain. MUSCULOSKELETAL: Significant for pain at the left breast and left upper back. GASTROINTESTINAL: Denies nausea, vomiting, abdominal pain or diarrhea. GENITOURINARY:: Denies urgency, frequency, dysuria. HEMATOPOIETIC: Denies easy bruising or bleeding. INTEGUMENTARY: Denies skin rash or itching. NEUROLOGIC: Denies headache or problems with coordination. ENDOCRINE: Denies polyuria, polydipsia. PHYSICAL EXAMINATION GENERAL: This is a well-developed female who is in no acute distress. She is awake and alert and oriented. VITAL SIGNS: Temperature 97.4, BP 106/75, respirations 18, heart rate 67. HEENT: Head atraumatic. Extraocular movements grossly intact, pupils reactive to light without icterus. Oropharynx no visible lesions or thrush. NECK: Supple without adenopathy. LUNGS: Clear breath sounds HEART: Regular S1 and SD2 without murmurs. CHEST: Left breast appears equal in size to the right breast. There is no significant swelling visible. There is no redness over that breast. There is mild tenderness on palpation of the tissue all around the left breast and also mild tenderness at the left scapular region. There is no restriction of left arm motion. The left breast has no heat and no warmth. It is the same as the right breast tissue. There is no increased warmth and no induration. ABDOMEN: Bowel sounds present, soft, nontender. RECTAL: Not performed. EXTREMITIES: No clubbing, cyanosis or edema. SKIN: No rash. NEUROLOGIC: Nonfocal. LABORATORY DATA WBC 6.4, platelets 212, 46% lymphocytes, 39% neutrophils, 9% monocytes, 5% eosinophils. creatinine 0.47, BUN six, sodium 142. IMPRESSION Improved cellulitis of the left breast. No evidence of complicated infected underlying breast tissue based on culture of aspirated fluid. There were nonspecific lymph nodes in the left axillary area on CT scan which may go along with the left breast cellulitis. The patient appears to have improved significantly with the intravenous cefazolin. RECOMMENDATIONS Continue the Ancef overnight and then can switch the patient to oral Keflex p.o. for another 10 days of treatment. If she continues to have the pain that she is experiencing you might want to consider also using a non steroidal anti-inflammatory agent because she may be experiencing musculoskeletal pain. She should be cautioned to follow up with her physician or present to the emergency department if she develops worsening of the left breast including recurrence of erythema or worsening pain uncontrolled by the pain medicines she is taking. Binh Kovacs MD FD/ /5:37 PM /6:26 PM MTDRichmond
[2017-01-26 20:00] VITALS: BP 97/69; PULSE 57; RESP 20; O2SAT 98
[2017-01-27] VITALS: BP 83/55; PULSE 58; RESP 18; TEMP 97.6; O2SAT 99
[2017-01-27] MEDS: SODIUM CHLOR 0.9% 1000 ML INJ 1,000 ML IV SCH ×2 (01:53→09:26)
[2017-01-27] MEDS: ALPRAZolam 1 MG TAB PO PRN ×2 (02:38→10:52)
[2017-01-27] MEDS: ceFAZolin 1,000 MG/NS 100 ML IV SCH ×6 (02:38→15:41)
[2017-01-27 04:00] VITALS: BP 114/68; PULSE 81; RESP 20; TEMP 97.8; O2SAT 93
[2017-01-27] MEDS: oxyCODONE HCL 10 MG CONTROLLED RELEASE TAB PO SCH ×2 (05:41→13:17)
[2017-01-27] MEDS: SODIUM CHLORIDE 0.9% FLUSH 5 ML FLUSH FLUSH SCH (07:48)
[2017-01-27 08:00] VITALS: BP 92/68; PULSE 65; RESP 20; TEMP 98; O2SAT 95
[2017-01-27] MEDS: LACTOBACILLUS ACIDOPHILUS TAB PO SCH (09:20)
--- NOTE | 2017-01-27 10:42 | HHI.PR ---
Subjective Remarks Patient seen in the room in the presence of Nurse Miss Jett also her Mother and her significant other her Brother present Improved her Erythema of the breast, due to persistent breast pain , recommended by Doctor Chapin Garcia to continue IV antibiotics, will ask for the expertise of Infectious Disease specialist to guide the type and duration of antibiotics. blood cultures negative. 01/27 Seen in her bedroom in the presence of her relative, she was evaluated by ID specialist doctor Ariel Kovacs with diagnosis of Improved Cellulitis of the left breast, no evidence of Complicated underlying breast tissue based on culture of aspirated fluid, non specific lymph nodes in the left axillary area on CT scan, recommended to continue Ancef overnight and then can be switched to oral Keflex for 10 days more, NSAID recommended if pain continues, follow as outpatient. today awaiting for Cost And Risk Analysis Manager doctor Radha for probable discharge Home. Objective Vital Signs Date Time Temp Pulse Resp B/P Pulse Ox O2 Delivery O2 Flow Rate FiO2 01/27/17 04:00 97.8 81 20 114/68 93 01/27/17 00:00 97.6 58 18 83/55 99 01/26/17 20:00 57 20 97/69 98 01/26/17 16:00 97.9 57 18 143/95 99 01/26/17 12:00 97.4 67 18 106/75 98 I/O 01/26/17 01/26/17 01/26/17 01/27/17 01/27/17 01/27/17 07:00 15:00 23:00 07:00 15:00 23:00 Intake Total 1624 ml 1310 ml 480 ml 2052 ml Balance 1624 ml 1310 ml 480 ml 2052 ml Intake Oral 400 ml 480 ml 480 ml 480 ml IV Total 1224 ml 830 ml 1572 ml # Voids 2 2 3 # Bowel Movements 0 1 Result Diagram: 01/24/17 0609 01/24/17 0609 Imaging Last Impressions Needle Aspiration Ultrasound 01/24/17 0000 Signed Impressions: Service Date/Time: Tuesday, January 24, 2017 13:11 - CONCLUSION: Uncomplicated ultrasound guided aspiration. Ambrocio Odell MD FACR Chest X-Ray 01/23/17 1622 Signed Impressions: Service Date/Time: Monday, January 23, 2017 17:07 - CONCLUSION: No acute disease. Shaq Benitez MD Chest CT 01/23/17 0000 Signed Impressions: Service Date/Time: Monday, January 23, 2017 20:28 - CONCLUSION: 1. Platelike scarring versus atelectasis in both lung bases. 2. Nonspecific edema in the subcutaneous soft tissues along the left anterior chest/breast area. 3. Nonspecific lymph nodes in the left axillary area. Nahum Doyle MD Breast Ultrasound 01/23/17 0000 Signed Impressions: Service Date/Time: Monday, January 23, 2017 17:41 - CONCLUSION: No focal abnormality visualized. Blanco Mendez MD Procedures left breast biopsy Other Results Laboratory Tests Test 01/23/17 01/24/17 01/24/17 01/24/17 16:30 06:09 09:25 14:15 Prothrombin Time 10.0 SEC Prothromb Time International 0.9 RATIO Ratio Activated Partial 31.7 SEC Thromboplast Time Total Bilirubin 0.2 MG/DL Aspartate Amino Transf 16 U/L (AST/SGOT) Alanine Aminotransferase 64 U/L (ALT/SGPT) Alkaline Phosphatase 87 U/L Total Creatine Kinase 55 U/L Troponin I LESS THAN 0.02 NG/ML Total Protein 6.8 GM/DL Albumin 3.1 GM/DL Human Chorionic Gonadotropin, LESS THAN 1 Quant MIU/ML White Blood Count 6.4 TH/MM3 Red Blood Count 3.75 MIL/MM3 Hemoglobin 12.0 GM/DL Hematocrit 35.1 % Mean Corpuscular Volume 93.7 FL Mean Corpuscular Hemoglobin 32.1 PG Mean Corpuscular Hemoglobin 34.2 % Concent Red Cell Distribution Width 13.2 % Platelet Count 212 TH/MM3 Mean Platelet Volume 7.6 FL Neutrophils (%) (Auto) 39.1 % Lymphocytes (%) (Auto) 46.4 % Monocytes (%) (Auto) 9.2 % Eosinophils (%) (Auto) 5.0 % Basophils (%) (Auto) 0.3 % Neutrophils # (Auto) 2.5 TH/MM3 Lymphocytes # (Auto) 2.9 TH/MM3 Monocytes # (Auto) 0.6 TH/MM3 Eosinophils # (Auto) 0.3 TH/MM3 Basophils # (Auto) 0.0 TH/MM3 CBC Comment DIFF FINAL Differential Comment Sodium Level 142 MEQ/L Potassium Level 4.4 MEQ/L Chloride Level 110 MEQ/L Carbon Dioxide Level 25.0 MEQ/L Anion Gap 7 MEQ/L Blood Urea Nitrogen 6 MG/DL Creatinine 0.47 MG/DL Estimat Glomerular Filtration 154 ML/MIN Rate Random Glucose 81 MG/DL Calcium Level 7.9 MG/DL Urine Opiates Screen POS Urine Barbiturates Screen NEG Urine Amphetamines Screen NEG Urine Benzodiazepines Screen POS Urine Cocaine Screen NEG Urine Cannabinoids Screen NEG Miscellaneous Test Result Objective Remarks GENERAL: No Acute distress SKIN: Warm and dry. HEAD: Atraumatic. Normocephalic. EYES: Pupils equal and round. No scleral icterus. No injection or drainage. ENT: No nasal bleeding or discharge. Mucous membranes pink and moist. NECK: Trachea midline. No JVD. CARDIOVASCULAR: Regular rate and rhythm. RESPIRATORY: No accessory muscle use. Clear to auscultation. Breath sounds equal bilaterally. GASTROINTESTINAL: Abdomen soft, non-tender, nondistended. Hepatic and splenic margins not palpable. MUSCULOSKELETAL: Extremities without clubbing, cyanosis, or edema. No obvious deformities. NEUROLOGICAL: Awake and alert. No obvious cranial nerve deficits. Motor grossly within normal limits. Five out of 5 muscle strength in the arms and legs. Normal speech. PSYCHIATRIC: Appropriate mood and affect; insight and judgment normal. Medications and IVs Current Medications Medications (Trade) Dose Ordered Sig/Julian Route Start Time Stop Time Status Last Admin (NS 1000 ml Inj) 1,000 ml @ 100 mls/hr Q10H IV 01/23/17 18:51 01/27/17 09:26 (NS Flush) 2 ml UNSCH PRN FLUSH 01/23/17 19:00 01/24/17 16:51 (NS Flush) 2 ml BID FLUSH 01/23/17 21:00 01/26/17 07:32 (Tylenol) 650 mg Q4H PRN PO 01/23/17 19:00 (Zofran Inj) 4 mg Q6H PRN IVP 01/23/17 19:00 (Milk Of Magnesia Liq) 30 ml Q12H PRN PO 01/23/17 19:00 (Restoril) 15 mg HS PRN PO 01/23/17 19:00 (Narcan Inj) 0.4 mg UNSCH PRN IV 01/23/17 19:00 (Lactinex) 1 tab Q12HR PO 01/23/17 21:00 01/27/17 09:20 Alprazolam 2 mg 2 mg Q8H PRN PO 01/23/17 19:00 01/27/17 02:38 (Ancef Inj/NS Inj) 100 ml @ 200 mls/hr Q6H IV 01/24/17 09:00 01/27/17 09:20 (Roxicodone) 30 mg Q6HR PRN PO 01/25/17 18:00 01/27/17 09:20 (OxyCONTIN CR) 30 mg Q8HR PO 01/25/17 22:00 01/27/17 05:41 (Dilaudid Pf Inj) 0.2 mg Q4H PRN IV PUSH 01/25/17 17:00 A/P Assessment and Plan 31-year-old female presenting with #1 left breast abscess/cellulitis S/P US guided I and D 01/24- 10 cc fluid obtained Negative Pathology report. Seen first with Nurse then with Doctor Chapin Garcia continue Ancef 1 g every 6. status post ID specialist consult recommended to switch today to By mouth Keflex and continue 10 days, awaiting for customer training specialist Doctor Garcia for discharge. #2 history of chronic pain on pain management continue oxycodone by mouth. #3 history of anxiety disorder Xanax 2 mg by mouth every 8 when necessary patient up and ambulating Code Status Full Code discussed with patient in the room, another relative and nurse Miss David. Discharge Planning Expected later today if cleared by customer training specialist. Tariq Wheeler MD Jan 27, 2017 10:42
[2017-01-27 12:00] VITALS: BP 86/59; PULSE 60; RESP 20; TEMP 98.1; O2SAT 97
[2017-01-27 16:00] VITALS: BP 96/71; PULSE 63; RESP 20; TEMP 97.6; O2SAT 97
[2017-01-27] MEDS ORDERED: CEPH-460 PO (16:28)
[2017-01-27 16:33] VITALS: RESP 16
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
== END 2017-01-27 17:13 | disposition home or self-care (01) | DRG 601 ==
LOC: PHED 14:44 → PHEDA 18:46 → NEPHCDU 22:13 → HCPC 01-25 12:04
PROVIDERS: ADMIT Internal Medicine; ATTEND Internal Medicine
PROC: 0H9U3ZX Drainage of Left Breast, Percutaneous Approach, Diagnostic (ICD-10-PCS; principal; 2017-01-24)
DX: N61.1 Abscess of the breast and nipple (principal); F31.9 Bipolar disorder, unspecified; F41.9 Anxiety disorder, unspecified; G89.29 Other chronic pain; F17.210 Nicotine dependence, cigarettes, uncomplicated; Z98.82 Breast implant status; Z88.2 Allergy status to sulfonamides; Z88.5 Allergy status to narcotic agent
CPT/HCPCS: 10160; 71010; 71260; 76642; 76942; 80048; 80053; 80307; 82550; 84484; 84702; 85025; 85610; 85730; 87040; 87070; 87102; 87205; 87206; 88184; 88185; 93005; 96365; 96375; C1729; J0690; J1170; J3370; J7030; J7050; Q9967

== ENCOUNTER 2017-04-29 11:28 | Emergency (ER) | payer BC ==
[~2017-04-29] VITALS: Ht 157.5 cm; Wt 63.3 kg
[~2017-04-29 11:28] MED LIST changes: +CEPH-460 PO
[2017-04-29 11:30] VITALS: BP 91/66; PULSE 75; RESP 18; TEMP 98.2; O2SAT 97
--- NOTE | 2017-04-29 11:49 | PD ---
HPI Chief Complaint: Musculoskeletal Complaint Time Seen by Provider: 11:36 Travel History International Travel<30 days: No Contact w/Intl Traveler<30days: No Traveled to known affect area: No History of Present Illness HPI The patient is a 32-year-old female who presents emergency department for left knee pain. The patient states she is walking out of a hotel [place] yesterday when she twisted her left knee. The patient states she twisted her left knee and stepped backwards, placing all her weight on the left lower extremity. She did not actually fall to the ground, however, did twist her knee with significant weight placed on the knee. She now has difficulty bearing weight of the affected area secondary to pain. She does have a history of previous complete ACL tear without surgery, 7 years ago, according to the patient's report. The pain radiates down the left lower extremity, but is located over the anterior aspect of the knee and radiates to the posterior aspect of the knee. Symptoms are moderate, worse with weightbearing and movement, slightly alleviated at rest. PFSH Past Medical History Hx Anticoagulant Therapy: No Bipolar Disorder: Yes Anxiety: Yes Cancer: No Cardiovascular Problems: No Diabetes: No Diminished Hearing: No Endocrine: No Glaucoma: No Genitourinary: No Hepatitis: No Hiatal Hernia: No Hypertension: No Musculoskeletal: No Neurologic: No Psychiatric: Yes Reproductive: No Respiratory: No Immunizations Current: Yes Migraines: Yes Thyroid Disease: No ?: Not Past Surgical History Abdominal Surgery: Yes (LAPAROSCOPY X8) Other Surgery: Yes (BREAST AUGMENTATION) Social History Alcohol Use: Yes (RARE) Tobacco Use: Yes (11/15 PPD) Substance Use: No Allergies-Medications (Allergen,Severity, Reaction): Coded Allergies: Morphine (Unverified Allergy, Severe, CHEST TIGHTNESS, SOB, HIVES, 04/29/17 ) Adhesives (Verified Allergy, Mild, REDNESS, 04/29/17) Flexeril (Verified Allergy, Mild, RASH, 04/29/17) Sulfa (Verified Allergy, Mild, RASH, 04/29/17) Voltaren (Verified Adverse Reaction, Mild, NAUSEA, GI UPSET, 04/29/17) Reported Meds & Prescriptions Reported Meds & Active Scripts Active Reported Oxycodone (Oxycodone HCl) 30 Mg Tab 30 Mg PO Q8H PRN Oxycontin (Oxycodone HCl) 30 Mg Tab 30 Mg PO Q8HR Xanax (Alprazolam) 2 Mg Tab 2 Mg PO Q8H PRN Review of Systems General / Constitutional: No: Fever Musculoskeletal: Positive: Limited ROM, Edema, Pain Skin: No Rash Neurologic: No: Paresthesia, Sensory Disturbance Physical Exam Narrative GENERAL: Awake, alert, nontoxic-appearing 32-year-old female who appears her stated age and is in no acute respiratory distress. SKIN: Focused skin assessment warm/dry. HEAD: Atraumatic. Normocephalic. EYES: Pupils equal and round. Color contacts in place. MUSCULOSKELETAL: The left knee is edematous when compared to the right. Patella is midline. Mild tenderness of the anterior aspect of the knee and posterior aspect of the knee. Positive dorsalis pedal pulses. Active flexion of 20, passive flexion is 90. No obvious bony deformity. NEUROLOGICAL: Awake and alert. No obvious cranial nerve deficits. Motor grossly within normal limits. Normal speech. Sensation is intact of the medial , lateral, dorsal aspect of the left lower extremity. PSYCHIATRIC: Appropriate mood and affect; insight and judgment normal. Data Data Last Documented VS Vital Signs Date Time Temp Pulse Resp B/P Pulse Ox O2 Delivery O2 Flow Rate FiO2 04/29/17 11:30 98.2 75 18 91/66 97 Orders Knee, Ltd (1 Or 2vws) (04/29/17 ) Canvas Knee Splint (04/29/17 12:22) Crutches (04/29/17 12:22) MDM Medical Decision Making Medical Screen Exam Complete: Yes Emergency Medical Condition: Yes Medical Record Reviewed: Yes Interpretation(s) X-ray of the left knee reveals no acute fracture identified. There is a small joint effusion. Differential Diagnosis Differential diagnosis includes fracture, dislocation, sprain, strain, contusion , hematoma, effusion. Narrative Course X-ray of the left knee was obtained. X-ray reveals no acute fracture, there is a small joint effusion. The patient was placed in a cam his knee splint and fitted for crutches. The patient is advised elevate, ice, [id number] ibuprofen as needed, continue her current pain medications administered by her pain interventional's. She is advised to follow with orthopedist. Diagnosis Primary Impression: Left knee pain Qualified Code: M25.562 - Acute pain of left knee Additional Impression: Effusion, left knee Patient Instructions: General Instructions Additional Instructions: Cannabis knee splint as directed. Crutches. Follow-up with an orthopedist. Elevate, ice, [id number] ibuprofen as needed for pain. Med/Other Pt SpecificInfo: No Change to Meds Disposition: 01 DISCHARGE HOME Condition: Stable Jesus Luna MD Apr 29, 2017 11:49
--- NOTE | 2017-04-29 12:20 | RADHPO ---
EXAM DATE/TIME: 04/29/2017 11:53 [facility] COMPARISON: No previous studies available for comparison. INDICATIONS : Fell, left knee pain MEDICAL HISTORY : None. SURGICAL HISTORY : None. ENCOUNTER: Initial ACUITY: 1 day PAIN SCORE: 10/10 LOCATION: Left knee FINDINGS: Two view examination of the left knee demonstrates no evidence of fracture or dislocation. Bony mine ralization is normal. There is a small joint effusion. CONCLUSION: 1. No acute fracture identified. There is a small joint effusion. Yohannes Rueda MD on April 29, 2017 at 12:17 Board Certified Radiologist. This report was verified electronically.
== END 2017-04-29 12:51 | disposition home or self-care (01) ==
LOC: PHEFT 11:28
DX: M25.562 Pain in left knee (principal); M25.462 Effusion, left knee
CPT/HCPCS: 73560; 99283; E0113; L1830

== ENCOUNTER 2017-08-30 17:04 | Emergency (ER) | payer OTHER, BC ==
[~2017-08-30] VITALS: Ht 157.5 cm; Wt 62.0 kg
[~2017-08-30 17:04] MED LIST changes: -CEPH-460 PO
[2017-08-30 17:11] VITALS: BP 108/64; PULSE 85; RESP 16; TEMP 98.1; O2SAT 97
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
[2017-08-30] MEDS ORDERED: oxyCODONE/ACETAMINOPHEN 10 MG/325 MG TAB PO ONE (18:15)
[2017-08-30] MEDS ORDERED: METHOCARBAMOL 500 MG TAB PO ONE (18:15)
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
[2017-08-30] MEDS ORDERED: PERC5TAB12 PO (19:58)
[2017-08-30] MEDS ORDERED: ROBA500T PO (19:58)
== END 2017-08-30 20:07 | disposition home or self-care (01) ==
LOC: PHEFT 17:04
DX: S40.012A Contusion of left shoulder, initial encounter (principal); S39.012A Strain of muscle, fascia and tendon of lower back, initial encounter; V43.52XA Car driver injured in collision with other type car in traffic accident, initial encounter
CPT/HCPCS: 71010; 72050; 72072; 72110; 73030; 73090; 73130; 99285

== ENCOUNTER 2017-10-03 17:04 | Emergency (ER) | payer BC ==
[~2017-10-03] VITALS: Ht 157.5 cm; Wt 61.0 kg
[~2017-10-03 17:04] MED LIST changes: +PERC5TAB12 PO; +ROBA500T PO
[2017-10-03 17:08] VITALS: BP 123/60; PULSE 69; RESP 16; TEMP 98.7; O2SAT 97
[2017-10-03] MEDS ORDERED: CLIN300C5 PO (17:47)
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
== END 2017-10-03 18:05 | disposition home or self-care (01) ==
LOC: PHEFT 17:04
DX: L02.412 Cutaneous abscess of left axilla (principal); F31.9 Bipolar disorder, unspecified; F17.210 Nicotine dependence, cigarettes, uncomplicated; Z88.2 Allergy status to sulfonamides
CPT/HCPCS: 10061